=== PATIENT | female | born 1990 | race Caucasian/White ===

== ENCOUNTER 2016-10-26 17:16 | Emergency (ER) | payer MEDICAID ==
[~2016-10-26] VITALS: Ht 149.9 cm; Wt 59.1 kg
[2016-10-26 21:41] VITALS: BP 100/63
== END 2016-10-26 21:44 | disposition home or self-care (01) ==
LOC: ED 17:16
DX: M54.5 Low back pain (principal); R11.2 Nausea with vomiting, unspecified
CPT/HCPCS: J1885; Q0162

== ENCOUNTER 2016-10-27 20:08 | Emergency (ER) | payer MEDICAID ==
[2016-10-27 22:13] VITALS: BP 104/69
== END 2016-10-27 22:13 | disposition home or self-care (01) ==
LOC: ED 20:08
DX: R20.2 Paresthesia of skin (principal); T39.315A Adverse effect of propionic acid derivatives, initial encounter; Y92.89 Other specified places as the place of occurrence of the external cause
CPT/HCPCS: Q0162